=== PATIENT | male | born 2000 | race Caucasian/White ===

== ENCOUNTER 2023-03-26 19:18 | Emergency (ER) | payer SELFPAY ==
[~2023-03-26] VITALS: Wt 90.7 kg
[~2023-03-26 19:18] MED LIST: AUGMENTIN 875 M1 TA1 PO; CIPRO500 MG PO; HYDROCODONE BIT1 T11 PO; MOTRIN600 MG PO; SILVADENE1% TP; TYLENOL W/CODEI1 TA4 PO
[2023-03-26] MEDS ORDERED: PENICILLIN VK500 MG PO (20:59)
== END 2023-03-26 20:58 | disposition home or self-care (01) ==
LOC: ED 19:18
DX: T78.40XA Allergy, unspecified, initial encounter (principal); K02.9 Dental caries, unspecified; K08.89 Other specified disorders of teeth and supporting structures; J45.909 Unspecified asthma, uncomplicated; Z98.890 Other specified postprocedural states; X58.XXXA Exposure to other specified factors, initial encounter